=== PATIENT | female | born 1980 | race Caucasian/White ===

== ENCOUNTER 2023-10-13 11:50 | Emergency (ER) | payer BC, SELFPAY ==
[2023-10-13 12:10] VITALS: BP 156/92; PULSE 80; RESP 18; TEMP 36.9; O2SAT 98; BMI 47.6
--- NOTE | 2023-10-13 12:33 | EXP.UTC ---
Discharge Plan Disposition Patient Disposition: Home, Self-Care Condition: Good Prescriptions Prescriptions: New methylprednisolone [Medrol (Enzo)] 4 mg tablets,dose pack See Rx Instructions .Route .COMPLEX 6 Days Qty: 21 0RF Rx Instructions: taper pack; amoxicillin-pot clavulanate 875-125 mg Tablet 1 tab PO Q12H Qty: 20 0RF guaifenesin [Mucinex] 600 mg tablet extended release 12hr 1,200 mg PO BID PRN (Reason: cough) Qty: 20 0RF No Action fluoxetine 40 mg capsule 40 mg PO DAILY cyanocobalamin (vitamin B-12) [Vitamin B-12] 1,000 mcg tablet 1,000 mcg PO DAILY Patient Comments: TAKE 1 TABLET BY MOUTH EVERY DAY FOR 30 DAYS hydrochlorothiazide 25 mg tablet 25 mg PO DAILY Patient Comments: TAKE 1 TABLET BY MOUTH EVERY DAY FOR 30 DAYS ergocalciferol (vitamin D2) 1,250 mcg (50,000 unit) capsule 1,250 mcg PO DAILY Patient Comments: TAKE 1 CAPSULE EVERY WEEK BY ORAL ROUTE. loratadine 10 mg tablet 10 mg PO DAILY Patient Comments: TAKE 1 TABLET BY MOUTH EVERY DAY Referrals Follow up/Referrals: Jann Joyce MD [Primary Care Provider] - See instructions Activity Restrictions/Add. Instructions Additional Instructions/Restrictions: Monitor Temp, Over the counter Motrin or Tylenol as directed/as needed Tylenol every 4 hours and Motrin every 6 hours (as long as your family doctor has told you that you can take it) for fever or pain. and straight to ER if unable to lower temp less than 101.0 after medication given *Warm salt water gargles may help to soothe the throat *Throat Lozenges? *Warm fluids like tea with honey may help to soothe the throat? *Sleep elevated *Humidifier/Vaporizer Take medication as prescribed Follow up IMMEDIATELY for new or worsening symptoms or no Noticeable improvement over the next 48-72 hours. 911 for difficulty breathing or swallowing Clinical Impressions Clinical Impression: Sinusitis Qualifiers: Sinusitis location: unspecified location Chronicity: unspecified Qualified Code(s): J32.9 - Chronic sinusitis, unspecified Instructions Patient Instructions: DI for Sinusitis, Sinusitis Discharge ED Provider: Lise JerezH UTC HPI General Stated complaint: fever, ear and lung pain headache Mode of Arrival: Ambulatory Source of Information: Patient Limitations: No Limitations Time Seen by Provider: 10/13/23 12:33 Description of Symptoms (Recalled from Triage Doc. by RN): PATIENT C/O LOW-GRADE FEVER, COUGH, HEADACHE, EAR PAIN, AND UPPER BACK PAIN X 2 DAYS HEENT Symptoms (Recalled from RN notes): Yes Resp Symptoms (Recalled from RN notes): Yes Skin Symptoms (Recalled from RN notes): No MS Symptoms (Recalled from RN notes): No Functional Status (Recalled from RN notes): WNL History of Present Illness Provider Complaint: Patient states that she has been having sinus pain and pressure for over a week for the last couple of days she has been having low grade fever, cough, pain in her upper back with coughing at times, and pressure like feeling in her ears States that she feels like she has a bad sinus infection that is trying to move into her chest Related Data Home Medications Medication Instructions Recorded Confirmed cyanocobalamin (vitamin B-12) 1,000 mcg PO DAILY 10/13/23 10/13/23 1,000 mcg tablet (Vitamin B-12) ergocalciferol (vitamin D2) 1,250 1,250 mcg PO DAILY 10/13/23 10/13/23 mcg (50,000 unit) capsule fluoxetine 40 mg capsule 40 mg PO DAILY 10/13/23 10/13/23 hydrochlorothiazide 25 mg tablet 25 mg PO DAILY 10/13/23 10/13/23 loratadine 10 mg tablet 10 mg PO DAILY 10/13/23 10/13/23 Previous Rx's Medication Instructions Recorded amoxicillin 875 mg-potassium 1 tab PO Q12H #20 tabs 10/13/23 clavulanate 125 mg tablet guaifenesin 600 mg tablet, 1,200 mg PO BID PRN cough #20 tabs 10/13/23 extended release 12 hr (Mucinex) methylprednisolone 4 mg tablet
[2023-10-13 12:54] VITALS: BP 0/0; PULSE 92; RESP 22; TEMP 36.8; O2SAT 100
== END 2023-10-13 13:01 | disposition home or self-care (01) ==
PROVIDERS: Emergency Provider Nurse Practitioner; PCP Pediatrics
DX: J01.90 Acute sinusitis, unspecified (principal); R51.9 Headache, unspecified; R50.9 Fever, unspecified; R05.9 Cough, unspecified; H92.03 Otalgia, bilateral; I10 Essential (primary) hypertension
CPT/HCPCS: 99204; 99212; G0463